=== PATIENT | female | born 1965 | race Caucasian/White ===

== ENCOUNTER 2017-05-19 22:36 | Emergency (ER) | payer BC ==
[~2017-05-19] VITALS: Ht 162.6 cm; Wt 72.6 kg
[2017-05-19 23:15] VITALS: BP 161/75
[2017-05-19 23:19] LABS: BILIRUBIN,URINE SMALL (NEG); GLUCOSE,URINE NEGATIVE (NEG); NITRITE,URINE NEGATIVE (NEG); PH,URINE 5.5; PROTEIN,URINE 100 mg/dL (NEG-TRACE)
--- NOTE | 2017-05-19 23:20 | PHYS DOC ---
Adult General Chief Complaint Chief Complaint: PAIN ON URINATION [facility] HPI Patient is a 52 year old female presents to the emergency department with a several hour history of urinary frequency, urgency and burning with urination. Patient states that she had a an esophageal dilatation yesterday and has recovered from that and feels fine. She is states that the symptoms feel like a urinary tract infection which she is experiencing the past. She reports no fever , no flank pain. No nausea, no vomiting. She has no complaints of abdominal pain but does complain of pressure in the suprapubic region. Review of Systems Review of Systems Constitutional: Denies fever or chills [] Eyes: Denies change in visual acuity, redness, or eye pain [] HENT: Denies nasal congestion or sore throat [] Respiratory: Denies cough or shortness of breath [] Cardiovascular: No additional information not addressed in HPI [] GI: Suprapubic pressure without nausea, vomiting, diarrhea : Sure he, frequency, urgency Musculoskeletal: Denies back pain or joint pain [] Integument: Denies rash or skin lesions [] Neurologic: Denies headache, focal weakness or sensory changes [] Endocrine: Denies polyuria or polydipsia [] Current Medications Current Medications Current Medications Medications (Trade) Dose Ordered Sig/Winter Start Time Stop Time Status Last Admin Dose Admin Ketorolac Tromethamine (Toradol Im) 60 mg 1X ONCE 05/19/17 23:30 05/19/17 23:31 05/19/17 23:27 60 MG Allergies Allergies Allergies Coded Allergies Type Severity Reaction Last Updated Verified No Known Drug Allergies 05/19/17 No Physical Exam Physical Exam Constitutional: Well developed, well nourished, no acute distress, non-toxic appearance. [] Neck: Normal range of motion, no tenderness, supple, no stridor. [] Cardiovascular:Heart rate regular rhythm, no murmur [] Lungs & Thorax: Bilateral breath sounds clear to auscultation [] Abdomen: Soft, nontender Skin: Warm, dry, no erythema, no rash. [] Back: No tenderness, no CVA tenderness. [] Extremities: No tenderness, no cyanosis, no clubbing, ROM intact, no edema. [] Neurologic: Alert and oriented X 3, normal motor function, normal sensory function, no focal deficits noted. [] Current Patient Data Vital Signs Vital Signs Date Time Temp Pulse Resp B/P (MAP) Pulse Ox O2 Delivery O2 Flow Rate FiO2 05/19/17 23:15 98.3 120 18 97 Room Air 98.3 Lab Values Laboratory Tests Test 05/19/17 23:10 Urine Collection Type Unknown Urine Color Lu Urine Clarity Turbid Urine pH 5.5 Urine Specific [place] >=1.030 Urine Protein 100 mg/dL (NEG-TRACE) Urine Glucose (UA) Negative mg/dL (NEG) Urine Ketones (Stick) Negative mg/dL (NEG) Urine Blood Large (NEG) Urine Nitrite Negative (NEG) Urine Bilirubin Small (NEG) Urine Urobilinogen Dipstick 1.0 mg/dL (0.2 mg/dL) Urine Leukocyte Esterase Large (NEG) Urine RBC >40 /HPF (0-2) Urine WBC Tntc /HPF (0-4) Urine Squamous Epithelial Cells Mod /LPF Urine Bacteria Mod /HPF (0-FEW) Urine Mucus Mod /LPF EKG EKG [] Radiology/Procedures Radiology/Procedures [] Course & Med Decision Making Course & Med Decision Making Pertinent Labs and Imaging studies reviewed. (See chart for details) [] Dragon Disclaimer Dragon Disclaimer This electronic medical record was generated, in whole or in part, using a voice recognition dictation system. Departure Departure Impression: Primary Impression: Urinary tract infection Disposition: 01 HOME, SELF-CARE Condition: STABLE Referrals: NO PCP (PCP) [facility] Patient Instructions: Urinary Tract Infection Scripts Phenazopyridine Hcl (PYRIDIUM) 200 Mg Tablet 200 MG PO TID, #9 TAB Prov: SVEN ZARCO APRN 05/19/17 Ciprofloxacin Hcl (CIPRO) 500 Mg Tablet 1 TAB PO BID, #20 TAB Prov: SVEN ZARCO APRN 05/19/17 Problem Qualifiers Primary Impression: Urinary tract infection Urinary tract infection type: acute cystitis Hematuria presence: with hematuria Qualified Codes: N30.01 - Acute cystitis with hematuria SVEN ZARCO APRN May 19, 2017 23:20
[2017-05-19 23:26] LABS: BACTERIA,URINE MOD /HPF (0-FEW); RBC,URINE >40 /HPF (0-2); SQUAMOUS EPITHELIAL CELL,UR MOD /LPF; WBC,URINE TNTC /HPF (0-4)
[2017-05-19] MEDS ORDERED: KETOROLAC 60 MG/2 ML INJ. IM ONE (23:30)
[2017-05-19] MEDS ORDERED: CIPR500T94 PO (23:33)
[2017-05-19] MEDS ORDERED: PHEN-318 PO (23:33)
[2017-05-19] MEDS ORDERED: PHENAZOPYRIDINE 200 MG TABLET. PO ONE (23:45)
[2017-05-19] MEDS ORDERED: SMZ/TMP 800/160MG TABLET. PO ONE (23:45)
== END 2017-05-19 23:55 | disposition home or self-care (01) ==
LOC: ER 22:36
DX: N30.01 Acute cystitis with hematuria (principal)
CPT/HCPCS: 81001; 96372; 99283; J1885